=== PATIENT | female | born 1975 ===

== ENCOUNTER 2017-01-22 19:25 | Emergency (ER) | payer MEDICARE ==
[2017-01-22 21:06] LABS: Basophils % (Auto) 1.1 % (0.0-1.8); Eosinophils % (Auto) 1.6 % (0.0-4.3); Hematocrit 36.7 % (30.3-42.9); Hemoglobin 12.4 gm/dl (10.1-14.3); Mean Corpuscular HGB Conc 34 % (30-34); Mean Corpuscular Hemoglobin 32 pg (28-32); Mean Corpuscular Volume 94 fl (79-97); Platelet Count 182 K/mm3 (140-440); Red Blood Count 3.89 M/mm3 (3.65-5.03); Red Cell Distribution Width 13.1 % (13.2-15.2); White Blood Count 10.2 K/mm3 (4.5-11.0)
[2017-01-22 21:18] LABS: Urine Drugs of Abuse Note Disclamer
[2017-01-22 21:26] LABS: Alanine Aminotransferase 7 units/L (7-56); Albumin 3.6 g/dL (3.9-5); Albumin/Globulin Ratio 1.2 %; Alkaline Phosphatase 57 units/L (35-129); Anion Gap 19 mmol/L; BUN/Creatinine Ratio 26; Bilirubin,Total < 0.20 mg/dL (0.1-1.2); Blood Urea Nitrogen 13 mg/dL (7-17); Calcium 8.6 mg/dL (8.4-10.2); Carbon Dioxide 22 mmol/L (22-30); Chloride 102.3 mmol/L (98-107); Creatine Kinase 57 units/L (30-135); Glucose 93 mg/dL (65-100); Potassium 4.2 mmol/L (3.6-5.0); Sodium 139 mmol/L (137-145); Total Protein 6.6 g/dL (6.3-8.2)
[2017-01-22 21:31] LABS: Bacteria,Urine 2+ /HPF (Negative); Bilirubin,Urine NEG (Negative); Blood,Urine SM (Negative); Ketones,Urine TR mg/dL (Negative); Leukocyte Esterase,Urine LG (Negative); Mucus,Urine FEW /HPF; Nitrite,Urine NEG (Negative)
[2017-01-22] MEDS ORDERED: ROCEPHIN/NS 1 GM/50 ML 1 GM/50 ML BAG IV ONE (21:37)
[2017-01-22] MEDS ORDERED: KEPPRA 1,000 MG/NS 0.75% 100ML 1,000 MG/100 ML BAG IV ONE (21:37)
[2017-01-22] MEDS ORDERED: HABITROL TD ONE (21:39)
[2017-01-22] MEDS ORDERED: cefTRIAXone 1 GM in NACL 0.9% 20 ML IV ONE (21:45)
--- NOTE | 2017-01-22 21:48 | Cat Scan Report ---
FINAL REPORT PROCEDURE: CT head without contrast. TECHNIQUE: Computerized tomography of the head was performed without contrast material. HISTORY: Seizures. COMPARISON: No prior studies are available for comparison. FINDINGS: The ventricles are normal in size. The monzon matter and white matter appear normal. There are no mass lesions. There is no intracranial hemorrhage. There are no signs of acute infarction. The calvarium appears intact. The mastoid air cells are clear. There are large mucous retention cysts in the left maxillary sinus. IMPRESSION: Normal study of the brain. Chronic left maxillary sinusitis.
[2017-01-22] MEDS ORDERED: TORADOL IV ONE (22:59)
--- NOTE | 2017-01-22 23:29 | Emergency Department Report ---
HPI - General Chief Complaint: Seizure Time Seen by Provider: 01/22/17 20:02 - HPI HPI: This is a 41-year-old female who presents to the emergency room via EMS from [place], where she is being seen for psych, with a complaint of having multiple seizures today. The patient says that she has a seizure disorder and takes Depakote and Vimpat. 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 The patient had 2 or 3 seizures despite her compliance with her medications. Currently the patient is awake and alert and just says that she feels tired and has some body aches. ED Past Medical Hx - Past Medical History Previous Medical History?: Yes Hx CVA: Yes Hx Arthritis: Yes Hx Seizures: Yes Hx Psychiatric Treatment: Yes (ANXIETY, Depression) Additional medical history: BRAIN TUMOR, depression - Surgical History Past Surgical History?: Yes Hx Cholecystectomy: Yes Additional Surgical History: Brain - Social History Smoking Status: Current Every Day Smoker Substance Use Type: None - Medications Home Medications: Home Medications Medication Instructions Recorded Confirmed Last Taken Type Citalopram [celeXA] 40 mg PO QDAY 07/11/15 07/11/[address] [DepaKOTE DR] 1,000 mg PO BID 07/11/15 07/11/15 Unknown History Ibuprofen [Motrin 600 MG tab] 600 mg PO Q8H PRN #30 tablet 07/11/15 Unknown Rx Lacosamide [Vimpat] 100 mg PO Q12HR 07/11/15 07/11/15 Unknown History Methocarbamol [Robaxin TAB] 750 mg PO BID PRN #14 tab 07/11/15 Unknown Rx Nitrofurantoin Monohyd/M-Cryst 100 mg PO BID #14 capsule 01/23/17 Unknown Rx [Macrobid 100 mg Capsule] ED Review of Systems ROS: Stated complaint: MH EVAL/DEPRESSION Other details as noted in HPI Comment: All other systems reviewed and negative Constitutional: other (fatigue). denies: chills, fever Eyes: denies: eye pain, eye discharge, vision change ENT: denies: ear pain, throat pain Respiratory: denies: cough, shortness of breath, wheezing Cardiovascular: denies: chest pain, palpitations Gastrointestinal: denies: abdominal pain, nausea, diarrhea Genitourinary: denies: urgency, dysuria, discharge Musculoskeletal: myalgia. denies: joint swelling Skin: denies: rash, lesions Neurological: other (seizures). denies: headache Physical Exam - Physical Exam Vital Signs: Vital Signs 01/22/17 01/22/17 01/22/17 19:37 19:45 19:51 Temperature 98.3 F Pulse Rate 82 78 Respiratory 20 13 18 Rate Blood Pressure 113/66 113/66 O2 Sat by Pulse 95 98 95 Oximetry 01/22/17 01/22/17 01/22/17 20:00 20:15 20:30 Temperature Pulse Rate 75 81 84 Respiratory 13 18 25 H Rate Blood Pressure 115/62 115/62 100/68 O2 Sat by Pulse 95 96 94 Oximetry 01/22/17 01/22/17 20:45 21:00 Temperature Pulse Rate 77 78 Respiratory 21 15 Rate Blood Pressure 100/68 106/60 O2 Sat by Pulse 96 Oximetry Physical Exam: GENERAL: The patient is well-developed well-nourished. HENT: Normocephalic. Atraumatic. Patient has moist mucous membranes. EYES: Extraocular motions are intact. Pupils equal reactive to light bilaterally. No nystagmus. NECK: Supple. Trachea is midline. CHEST/LUNGS: Clear to auscultation. There is no respiratory distress noted. HEART/CARDIOVASCULAR: Regular. There is no tachycardia. There is no gallop rub or murmur. ABDOMEN: Abdomen is soft, nontender. Patient has normal bowel sounds. There is no abdominal distention. SKIN: Skin is warm and dry. NEURO: The patient is awake, alert, and oriented. The patient is cooperative. The patient has no focal neurologic deficits. The patient has normal speech and gait. MUSCULOSKELETAL: There is no tenderness or deformity. There is no limitation range of motion. There is no evidence of acute injury. ED Course Vital Signs 01/22/17 01/22/17 01/22/17 19:37 19:45 19:51 Temperature 98.3 F Pulse Rate 82 78 Respiratory 20 13 18 Rate Blood Pressure 113/66 113/66 O2 Sat by Pulse 95 98 95 Oximetry 01/22/17 01/22/17 01/22/17 20:00 20:15 20:30 Temperature Pulse Rate 75 81 84 Respiratory 13 18 25 H Rate Blood Pressure 115/62 115/62 100/68 O2 Sat by Pulse 95 96 94 Oximetry 01/22/17 01/22/17 20:45 21:00 Temperature Pulse Rate 77 78 Respiratory 21 15 Rate Blood Pressure 100/68 106/60 O2 Sat by Pulse 96 Oximetry ED Medical Decision Making - Lab Data Result diagrams: 01/22/17 20:46 01/22/17 20:46 - EKG Data -: EKG Interpreted by Me EKG shows normal: sinus rhythm, axis, intervals, QRS complexes, ST-T waves Rate: normal - EKG Data When compared to previous EKG there are: previous EKG unavailable Interpretation: normal EKG - Radiology Data Radiology results: report reviewed, image reviewed interpreted by me: Abdominal x-ray shows nonspecific nonobstructive bowel gas. PROCEDURE: CT head without contrast. TECHNIQUE: Computerized tomography of the head was performed without contrast material. HISTORY: Seizures. COMPARISON: No prior studies are available for comparison. FINDINGS: The ventricles are normal in size. The monzon matter and white matter appear normal. There are no mass lesions. There is no intracranial hemorrhage. There are no signs of acute infarction. The calvarium appears intact. The mastoid air cells are clear. There are large mucous retention cysts in the left maxillary sinus. IMPRESSION: Normal study of the brain. Chronic left maxillary sinusitis. Transcribed By: [facility] Dictated By: REZA FERREIRA MD Electronically Authenticated By: REZA FERREIRA MD Signed Date/Time: 01/22/17 0928 - Medical Decision Making This patient was sent in from [place] after she allegedly had multiple witnessed seizures. The patient may have had some level of a postictal state when she first got here but for the majority of her ER course she has been awake and alert. She has been in the emergency department at this point for over 6 hours and there has been no further seizure-like activity. CT of the head did not show any bleed, shift, mass or any acute process. Labs were mostly unremarkable except for a urinary tract infection. For this she was given a dose of Rocephin through the IV and will be prescribed a 1 week course of Macrobid. Her labs show that she is therapeutic on her Depakote. She was covered with a 1 g dose of Keppra. At one point the patient complained of some abdominal pain and an abdominal x-ray was done that did not show any acute process. However shortly after complaining of abdominal pain, the patient is also asking for ice cream. The patient has been resting comfortably but is easily arousable. She has been seen ambulatory in the emergency department without any instability. Since the patient has been here for multiple hours without any further seizure-like activity, and since the patient appears to be therapeutic on her Depakote and compliant with her Vimpat, the patient appears safe for discharge back to [place] at this time. However if there is any further seizure-like activity or altered mental status, the patient has been encouraged to return back to the emergency department for further evaluation and treatment. She was given a referral for neurology to follow up when she is able to do so. - Differential Diagnosis epilepsy, substance abuse, TIA, brain bleed Critical Care Time: No Critical care attestation.: If time is entered above; I have spent that time in minutes in the direct care of this critically ill patient, excluding procedure time. ED Disposition Clinical Impression: Seizure UTI (urinary tract infection) Qualifiers: Urinary tract infection type: acute cystitis Hematuria presence: without hematuria Qualified Code(s): N30.00 - Acute cystitis without hematuria Disposition: DC/TX-65 PSY HOSP/PSY UNIT Is pt being admited?: No Condition: Stable Instructions: Urinary Tract Infection in Women (ED), Epilepsy (ED) Additional Instructions: Please follow up with the primary care physician as soon as possible. Continue taking your seizure medications. I have prescribed her antibiotic to take for a urinary tract infection. Return to the emergency Department with any worsening of her symptoms or any acute distress. Prescriptions: Nitrofurantoin Monohyd/M-Cryst [Macrobid 100 mg Capsule] 100 mg PO BID #14 capsule Referrals: PRIMARY CARE, [Primary Care Provider] - VIANEY YOUNG MD [Staff Physician] - 3-5 Days Time of Disposition: 01:24
--- NOTE | 2017-01-23 01:43 | XRay Report ---
FINAL REPORT PROCEDURE: XR ABDOMEN 2V TECHNIQUE: AP supine portable radiograph of the abdomen was obtained at 01/22/2017 23:39 (EST) . HISTORY: Abd pain COMPARISON: No prior studies are available for comparison. FINDINGS: Bowel gas pattern: Nonobstructive. Masses or calcifications: None. Bony structures: Normal. Other: None. IMPRESSION: There is no bowel obstruction, fecal impaction, bowel wall thickening or free air.
[2017-01-23 02:10] VITALS: BP 99/49
== END 2017-01-23 05:13 ==
LOC: ED 19:25
DX: G40.909 Epilepsy, unspecified, not intractable, without status epilepticus (principal); N30.00 Acute cystitis without hematuria; Z86.73 Personal history of transient ischemic attack (TIA), and cerebral infarction without residual deficits; M19.90 Unspecified osteoarthritis, unspecified site; F32.9 Major depressive disorder, single episode, unspecified; Z85.841 Personal history of malignant neoplasm of brain; Z88.8 Allergy status to other drugs, medicaments and biological substances
CPT/HCPCS: 36415; 70450; 74020; 80053; 80164; 80307; 81001; 82550; 84443; 84703; 85025; 93005; 93010; 96365; 96375; 99285; J0696; J1885; J1953

== ENCOUNTER 2018-04-17 13:45 | Emergency (ER) | payer MEDICARE ==
[2018-04-17] MEDS ORDERED: KEPPRA 1,000 MG/NS 0.75% 100ML 1,000 MG/100 ML BAG IV ONE (14:33)
[2018-04-17] MEDS ORDERED: TORADOL IV ONE (14:33)
--- NOTE | 2018-04-17 14:40 | Emergency Department Report ---
ED Seizure HPI - General Chief Complaint: Seizure Stated Complaint: SEIZURE Time Seen by Provider: 04/17/18 13:57 Source: EMS Mode of arrival: Stretcher Limitations: No Limitations - History of Present Illness Initial Comments: Ms. Foster is a 42 yo female who presents with seizure. She has had hx of epilepsy since age 13. She normally has 2 seizures per month. Takes Vimpat and Depakote for seizure prevention. Fell during today's seizure. Has headache and lower back pain after seizure. Normally takes Ibuprofen and Toradol for lower back pain. She presents from [facility] where she is being treated for depression. She lives in in [place], [place]. Medical Hx: Benign brain tumor, epilepsy, CVA, anxiety, depression MD Complaint: seizure -: Sudden Description of Episode: loss of consciousness, tonic-clonic movement Witnessed:: Yes Seizure History: known seizure disorder Possible Precipitating Event: stress Associated Symptoms: denies other symptoms - Related Data Home Medications Medication Instructions Recorded Confirmed Last Taken Citalopram [celeXA] 40 mg PO QDAY 07/11/15 07/11/[address] [DepaKOTE DR] 1,000 mg PO BID 07/11/15 07/11/15 Unknown Lacosamide [Vimpat] 100 mg PO Q12HR 07/11/15 07/11/15 Unknown Previous Rx's Medication Instructions Recorded Last Taken Type Ibuprofen [Motrin 600 MG tab] 600 mg PO Q8H PRN #30 tablet 07/11/15 Unknown Rx Methocarbamol [Robaxin TAB] 750 mg PO BID PRN #14 tab 07/11/15 Unknown Rx Nitrofurantoin Monohyd/M-Cryst 100 mg PO BID #14 capsule 01/23/17 Unknown Rx [Macrobid 100 mg Capsule] Allergies Allergy/AdvReac Type Severity Reaction Status Date / Time meperidine HCl [From Demerol] AdvReac Unknown Verified 07/11/15 00:39 ED Review of Systems ROS: Stated complaint: SEIZURE Other details as noted in HPI Comment: All other systems reviewed and negative Constitutional: denies: fever, malaise Respiratory: denies: cough Cardiovascular: denies: chest pain ED Past Medical Hx - Past Medical History Previous Medical History?: Yes Hx CVA: Yes Hx Arthritis: Yes Hx Seizures: Yes Hx Psychiatric Treatment: Yes (ANXIETY, Depression) Additional medical history: BRAIN TUMOR, depression - Surgical History Hx Cholecystectomy: Yes Additional Surgical History: Brain - Social History Smoking Status: Current Every Day Smoker Substance Use Type: None - Medications Home Medications: Home Medications Medication Instructions Recorded Confirmed Last Taken Type Citalopram [celeXA] 40 mg PO QDAY 07/11/15 07/11/[address] [DepaKOTE DR] 1,000 mg PO BID 07/11/15 07/11/15 Unknown History Ibuprofen [Motrin 600 MG tab] 600 mg PO Q8H PRN #30 tablet 07/11/15 Unknown Rx Lacosamide [Vimpat] 100 mg PO Q12HR 07/11/15 07/11/15 Unknown History Methocarbamol [Robaxin TAB] 750 mg PO BID PRN #14 tab 07/11/15 Unknown Rx Nitrofurantoin Monohyd/M-Cryst 100 mg PO BID #14 capsule 01/23/17 Unknown Rx [Macrobid 100 mg Capsule] ED Physical Exam - General Limitations: No Limitations General appearance: alert, in no apparent distress - Head Head exam: Present: atraumatic, normocephalic - Eye Eye exam: Present: normal appearance - ENT ENT exam: Present: mucous membranes moist - Neck Neck exam: Present: normal inspection, full ROM. Absent: tenderness, meningismus - Respiratory Respiratory exam: Present: normal lung sounds bilaterally. Absent: respiratory distress, wheezes, rales, rhonchi - Cardiovascular Cardiovascular Exam: Present: regular rate, normal rhythm, normal heart sounds. Absent: systolic murmur, diastolic murmur, rubs, gallop - GI/Abdominal GI/Abdominal exam: Present: soft, normal bowel sounds. Absent: distended, tenderness, guarding, rebound - Extremities Exam Extremities exam: Present: normal inspection - Back Exam Back exam: Present: normal inspection - Neurological Exam Neurological exam: Present: alert, oriented X3 - Psychiatric Psychiatric exam: Present: normal affect, normal mood - Skin Skin exam: Present: warm, dry, intact, normal color. Absent: rash ED Course Vital Signs 04/17/18 04/17/18 04/17/18 14:02 14:06 14:15 Temperature 98.4 F Pulse Rate 76 76 73 Respiratory 11 L 13 Rate Blood Pressure 112/68 111/70 O2 Sat by Pulse 100 100 Oximetry 0204/17/18 04/17/18 14:30 14:45 15:00 Temperature Pulse Rate Respiratory Rate Blood Pressure 106/66 97/62 97/62 O2 Sat by Pulse 100 100 98 Oximetry 04/17/18 04/17/18 04/17/18 15:17 15:30 16:46 Temperature 98.4 F Pulse Rate Respiratory Rate Blood Pressure 97/62 97/62 O2 Sat by Pulse 89 100 Oximetry ED Medical Decision Making - Lab Data Result diagrams: 04/17/18 15:37 04/17/18 15:37 - Medical Decision Making Ms. Foster is 42 yo female with History of epilepsy who presents with recurrent seizure. She does not have evidence of secondary trauma. On arrival she was alert and oriented insightful. CBC chemistry was normal limits. Depakote level is within therapeutic range. She received IV Keppra load in the ED for prevention of recurrent seizure. She is discharged. Critical care attestation.: If time is entered above; I have spent that time in minutes in the direct care of this critically ill patient, excluding procedure time. ED Disposition Clinical Impression: Seizure, Epilepsy Disposition: DC-01 TO HOME OR SELFCARE Is pt being admited?: No Does the pt Need Aspirin: No Condition: Stable Instructions: Epilepsy (ED) Referrals: DEVYN ASTORGA MD [Primary Care Provider] - 3-5 Days
[2018-04-17 15:54] LABS: Hematocrit 32.4 % (30.3-42.9); Hemoglobin 11.1 gm/dl (10.1-14.3); Mean Corpuscular HGB Conc 34 % (30-34); Mean Corpuscular Volume 97 fl (79-97); Platelet Count 145 K/mm3 (140-440); Red Blood Count 3.34 M/mm3 (3.65-5.03); Red Cell Distribution Width 11.9 % (13.2-15.2)
[2018-04-17 16:15] LABS: BUN/Creatinine Ratio 36; Blood Urea Nitrogen 18 mg/dL (7-17); Calcium 8.9 mg/dL (8.4-10.2); Hemolysis Index 9
[2018-04-17 16:46] VITALS: BP 97/62
== END 2018-04-17 16:50 | disposition left against medical advice (07) ==
LOC: ED 13:45
DX: G40.909 Epilepsy, unspecified, not intractable, without status epilepticus (principal); M19.90 Unspecified osteoarthritis, unspecified site; F17.200 Nicotine dependence, unspecified, uncomplicated; F32.9 Major depressive disorder, single episode, unspecified; F41.9 Anxiety disorder, unspecified; Z90.49 Acquired absence of other specified parts of digestive tract; Z79.899 Other long term (current) drug therapy; Z88.1 Allergy status to other antibiotic agents
CPT/HCPCS: 36415; 80048; 80164; 85027; 96374; 96375; 99284; J1885; J1953